=== PATIENT | male | born 1945 | race Two or more races ===

== ENCOUNTER 2024-03-15 21:18 | Emergency (ER) | payer OTHER, MEDICAID ==
[~2024-03-15] VITALS: Ht 172.7 cm; Wt 75.0 kg
[2024-03-15 21:40] VITALS: BP 126/56; PULSE 65; RESP 20; O2SAT 98
[2024-03-15] MEDS: TETANUS-DIPTH-ACEL PERTUSSIS 0.5ML SYR Tdap IM ONE (21:45)
--- NOTE | 2024-03-15 21:51 | ED.PDOC ---
[place]. trauma (HPI) HPI Comments 78 year old male came to ER due to head injury. Patient, intoxicated with alcohol, was sitting down when he fell backwards, hitting the back of his head on the carpeted floor. Denies any loss of consciousness. Noted 5cm laceration at the back of his head. Chief Complaint: Fall Injury Time Seen by MD: 21:51 Reviewed notes: Nurses Notes Allergies: Coded Allergies: No Known Drug Allergy (Verified Allergy, Unknown, 03/15/24) Information Source: Patient Mode of Arrival: Ambulatory Severity: Moderate Timing: Minutes Duration: Since onset Prehospital treatment: None Location: Head (occipital) Location of laceration: Head (occipital) Mechanism: Fall Associated signs and symtoms: ETOH Past Medical History PAST MEDICAL HISTORY: Denies Surgical History: Denies all surgeries Family History Family History: Reviewed,noncontributory to illness Social History Smoker: Non-Smoker Alcohol: Occasionally Drugs: Denies Drug Use Lives In: Home Constitutional: denies: chills, diaphoresis, fatigue, fever, malaise, sweats, weakness, others EENTM: denies: blurred vision, double vision, ear bleeding, ear discharge, ear drainage, ear pain, ear ringing, eye pain, eye redness, hearing loss, mouth pain, mouth swelling, nasal discharge, nose bleeding, nose congestion, nose pain, photophobia, tearing, throat pain, throat swelling, voice changes, others Respiratory: denies: cough, hemoptysis, orthopnea, SOB at rest, shortness of breath, SOB with excertion, stridor, wheezing, others Cardiovascular: denies: chest pain, dizzy spells, diaphoresis, Dyspnea on exertion, edema, irregular heart beat, left arm pain, lightheadedness, palpitations, PND, syncope, others Gastrointestinal: denies: abdomen distended, abdominal pain, blood streaked bowels, constipated, diarrhea, dysphagia, difficulty swallowing, hematemesis, melena, nausea, poor appetite, poor fluid intake, rectal bleeding, rectal pain, vomiting, others Genitourinary: denies: burning, dysuria, flank pain, frequency, hematuria, incontinence, penile discharge, penile sore, pain, testicle pain, testicle swelling, urgency, others Neurological: denies: dizziness, fainting, headache, left sided numbness, left sided weakness, numbness, paresthesia, pre-existing deficit, right sided numbness, right sided weakness, seizure, speech problems, tingling, tremors, weakness, others Musculoskeletal: denies: back pain, gout, joint pain, joint swelling, muscle pain, muscle stiffness, neck pain, others Integumetry: reports: laceration (occipital area); denies: bruises, change in color, change in hair/nails, dryness, lesions, lumps, rash, wounds, others Allergic/Immunocompromised: denies: Difficulty Healing, Frequent Infections, Hives, Itching, others Hematologic/Lymphatic: denies: anemia, blood clots, easy bleeding, easy bruising, swollen glands, others Endocrine: denies: excessive hunger, excessive sweating, excessive thirst, excessive urination, flushing, intolerance to cold, intolerance to heat, unexplained weight gain, unexplained weight loss, others Psychiatric: denies: anxiety, bipolar disorder, depression, hopeless, panic disorder, schizophrenia, sleepless, suicidal, others Physical Exam General Appearance: No Apparent Distress, Normal HEENT: Normal ENT Inspection, Pharynx Normal, TMs Normal Neck: Full Range of Motion, Non-Tender, Normal, Normal Inspection Respiratory: Chest Non-Tender, Lungs Clear, No Accessory Muscle Use, No Respiratory Distress, Normal Breath Sounds Cardiovascular: No Edema, No JVD, No Murmur, No Gallop, Normal Peripheral Pulses, Regular Rate/Rhythm Breast Exam: Deferred Gastrointestinal: No Organomegaly, Non Tender, No Pulsatile Mass, Normal Bowel Sounds, Soft Genitalia: Deferred Pelvic: Deferred Rectal: Deferred Extremities: No calf tenderness, Normal capillary refill, Normal inspection, Normal range of motion, Non-tender, No pedal edema Musculoskeletal : Apperance: Normal Neurologic: Alert, business representative II-XII nml as Tested, No Motor Deficits, Normal Affect, Normal Mood, No Sensory Deficits Cerebellar Function: Normal Reflexes: Normal Skin: Dry, Lacerations (occipital area), Normal Color, Warm Lymphatic: No Adenopathy Was a procedure done? Was a procedure done?: Yes Sedation Sedation?: No Laceration Repair : Location occipital area Length 5 cm Anesthetic: Nothing Laceration Repair Prep: Betadine Laceration Repair Wound Comple: epidermis/dermis repair Laceration Repair: Number of sutures (8), Skin, SQ, [place] Informed consent obtained: Yes Risks, benefits, and alternati: Yes Differential Diagnosis Multiple Trauma: Closed Head Injury, Hematoma, Laceration Neck Injury: Cervical Sprain, Cervical Strain X-Ray, Labs, Meds, VS Vital Signs Date Time Temp Pulse Resp B/P (MAP) Pulse Ox O2 Delivery O2 Flow Rate FiO2 03/15/24 21:40 97.6 65 20 126/56 (79) 98 Lab Test 03/15/24 21:29 Range/Units POC Glucose 112 H 70-106 mg/dl Current Medications Medications (Trade) Dose Ordered Sig/Nini Route Start Time Stop Time Status Last Admin Acetaminophen (Tylenol Tablet) 650 mg ONCE ONCE PO 03/15/24 21:45 03/15/24 21:46 DC 03/15/24 23:58 EXAM: CT HEAD WITHOUT CONTRAST FINDINGS: There is no evidence of acute intracranial hemorrhage, extra-axial collection, mass effect, midline shift, herniation or hydrocephalus. Chronic right subdural hematoma with findings of 0.45 cm midline shift to the left. Tissue density of the subdural on the right is 7.85 Hounsfield units density of the CSF is 5 Hounsfield units. The ventricles, sulci and cisterns are age appropriate. The mendiola-white differentiation is intact. Patchy periventricular and subcortical white matter hypoattenuation is n onspecific but may be related to small vessel ischemic disease. The visualized paranasal sinuses and mastoid air cells are clear. The surrounding soft tissues and osseous structures are unremarkable. IMPRESSION: 1. Chronic right subdural hematoma with 0.45 cm midline shift to the left. 2. No acute intracranial hemorrhage. Time of 1ST Reevaluation: 21:47 Reevaluation 1ST: Unchanged Patient Education/Counseling: Diagnosis, Treatment Family Education/Counseling: No Family Present Departure 1 Departure Time of Disposition: 00:30 (Patient with chronic subdural. Patient's laceration was repaired with jaspreet. We will discharge patient home with outpatient follow up all) Impression: Primary Impression: Fall Qualified Codes: W19.XXXA - Unspecified fall, initial encounter Additional Impressions: Scalp laceration Qualified Codes: S01.01XA - Laceration without foreign body of scalp, initial encounter Alcohol intoxication Qualified Codes: F10.920 - Alcohol use, unspecified with intoxication, unco mplicated Disposition: HOME / SELF CARE / HOMELESS Condition: Stable Additional Instructions: You had your laceration repaired in the ER today. You had 8 jaspreet placed today. You should follow up with your regular doctor or return here in 14 days for staple removal. In order to allow for the best healing, you should do the following. 1. Wash the area with gentle soap such as Dove brand and water. 2. Cover the laceration with bacitracin 3. Bandage the laceration and keep them covered. You should do the above twice per day. For pain you can take the followinam: Ibuprofen 400mg with food Noon: Acetaminophen 1000mg 4pm: Ibuprofen 400mg with food 8pm: Acetaminophen 1000mg If your symptoms worsen or you have any other concerns then please return to the ER. Discharged With: Self Critical Care Note Critical Care Time?: No Stability Stability form required: No Heart Score Heart Score: Heart Score Response (Comments) Value History N/A 0 EKG N/A 0 Age N/A 0 Risk Factors N/A 0 Troponin N/A 0 Total 0 I personally scribed for GRE[facility]ENSEN [email or web address] on 03/15/24 at 21:51. Electronically submitted by Ed Lisa ([employer]). I personally scribed for GRETA JENSEN MD ([email or web address]) on 03/15/24 at 22:50. Electronically submitted by Ed Lisa ([email or web address] GRETA JENSEN MD Mar 15, 2024 21:51
--- NOTE | 2024-03-15 22:46 | DVH ---
EXAM: CT HEAD WITHOUT CONTRAST INDICATION: fall TECHNIQUE: CT of the head without intravenous contrast. Radiation Dose Information: CT Dose: CTDI volume is 57.06 mGy. Dose-length product is 1010.3 mGy*cm The dose indicators for CT are the volume Computed Tomography (CT) Dose Index (CTDIvol) and the Dose Length Product (DLP), and are measured in units of mGy and mGy-cm, respectively. These indicators are not patient dose, but values generated from the CT scanner acquisition factors. The report includes radiation exposure data for exposures received during this examination. COMPARISON: None FINDINGS: There is no evidence of acute intracranial hemorrhage, extra-axial collection, mass effect, midline s hift, herniation or hydrocephalus. Chronic right subdural hematoma with findings of 0.45 cm midline shift to the left. Tissue density of the subdural on the right is 7.85 Hounsfield units density of the CSF is 5 Hounsfield units. The ventricles, sulci and cisterns are age appropriate. The mendiola-white differentiation is intact. Patchy periventricular and subcortical white matter hypoattenuation is nonspecific but may be related to small vessel ischemic disease. The visualized paranasal sinuses and mastoid air cells are clear. The surrounding soft tissues and osseous structures are unremarkable. IMPRESSION: 1. Chronic right subdural hematoma with 0.45 cm midline shift to the left. 2. No acute intracranial hemorrhage.
[2024-03-15] MEDS: ACETAMINOPHEN 325 MG TAB PO ONE (23:58)
== END 2024-03-16 00:39 | disposition home or self-care (01) ==
LOC: ER 21:18
DX: S01.01XA Laceration without foreign body of scalp, initial encounter (principal); F10.129 Alcohol abuse with intoxication, unspecified; Z79.899 Other long term (current) drug therapy; W18.09XA Striking against other object with subsequent fall, initial encounter; Y93.89 Activity, other specified; Y92.89 Other specified places as the place of occurrence of the external cause; Y99.8 Other external cause status
CPT/HCPCS: 12002; 70450; 82962